=== PATIENT | male | born 1970 | race Caucasian/White ===

== ENCOUNTER 2020-08-12 19:48 | Emergency (ER) | payer BC ==
[2020-08-12 22:31] LABS: HEMOGLOBIN 15.1 gm/dl (14.0-17.5); RED BLOOD COUNT 4.65 M/UL (4.20-5.50); WHITE BLOOD COUNT 7.7 K/UL (4.5-11.0)
[2020-08-13] MEDS ORDERED: BACTRIM DS TAB1 EACH PO (02:49)
[2020-08-13] MEDS ORDERED: CEPHALEXIN500 MG PO (02:49)
== END 2020-08-13 03:00 | disposition home or self-care (01) ==
LOC: ER1 19:48
PROVIDERS: Nurse Practitioner
DX: L03.313 Cellulitis of chest wall (principal)
CPT/HCPCS: 80053; 83605; 85025; 86140; 87040; 87081; 87880; 99283

== ENCOUNTER 2020-09-08 07:35 | Emergency (ER) | payer BC ==
[~2020-09-08 07:35] MED LIST: BACTRIM DS TAB1 EACH PO; CEPHALEXIN500 MG PO
[2020-09-08 09:28] LABS: BUN/CREATININE RATIO 10 (0-10)
[2020-09-08 10:45] LABS: HEMOGLOBIN 14.1 gm/dl (14.0-17.5); RED BLOOD COUNT 4.42 M/UL (4.20-5.50); WHITE BLOOD COUNT 6.6 K/UL (4.5-11.0)
[2020-09-08] MEDS ORDERED: MACROBID 100 M100 MG PO (11:11)
== END 2020-09-08 11:58 | disposition home or self-care (01) ==
LOC: ER1 07:35
PROVIDERS: Physician Assistant
DX: N30.90 Cystitis, unspecified without hematuria (principal); E87.6 Hypokalemia
CPT/HCPCS: 80053; 81001; 83690; 85025; 87086; 96374; 96375; 99284; J2270; J2405; Q9967

== ENCOUNTER → 2020-09-29 | Outpatient (CLI) | payer BC ==
[~2020-09-29] MED LIST changes: +MACROBID 100 M100 MG PO
== END ==
LOC: KOH-I 08:30
DX: R06.02 Shortness of breath (principal)
CPT/HCPCS: 71250